=== PATIENT | female | born 1940 | race Caucasian/White ===

== ENCOUNTER 2017-09-05 08:19 | Emergency (ER) | payer MEDICARE ==
[~2017-09-05] VITALS: Ht 175.3 cm; Wt 122.5 kg
[~2017-09-05 08:19] MED LIST: HYDROCHLOROTHIA25 M2 PO; HYDROCODON-ACE1 EAC7 PO; INDERAL LA120 M1; LIPITOR 20 MG T20 M1 PO; METFORMIN HCL500 MG PO; PRILOSEC 20 MG20 MG PO; QUINU10 PD
[2017-09-05] MEDS ORDERED: PRINIVIL20 MG PO (08:51)
[2017-09-05] MEDS ORDERED: SYNTHROID150 MCG PO (08:51)
[2017-09-05] MEDS ORDERED: VITAMIN D2000 UNIT PO (08:52)
[2017-09-05] MEDS ORDERED: CALCI PO (08:52)
[2017-09-05] MEDS ORDERED: CALCITRIOL0.25 MCG PO (08:52)
[2017-09-05] MEDS ORDERED: COLESTIPOL HCL1 G1 PO (08:53)
[2017-09-05] MEDS ORDERED: ZYRTEC10 MG PO (08:53)
[2017-09-05] MEDS ORDERED: POLYMYXIN B/TMP10 ML OPHTHALMIC (10:09)
[2017-09-05 10:21] VITALS: BP 179/110
== END 2017-09-05 10:22 | disposition home or self-care (01) ==
LOC: M.ERS 08:19
DX: H10.89 Other conjunctivitis (principal); E78.5 Hyperlipidemia, unspecified; I10 Essential (primary) hypertension; M19.90 Unspecified osteoarthritis, unspecified site; Z88.5 Allergy status to narcotic agent; Z88.0 Allergy status to penicillin